=== PATIENT | male | born 1960 | race Caucasian/White ===

== ENCOUNTER 2023-03-03 08:50 | Outpatient (CLI) | payer OTHER | END 2023-03-03 08:51 | disposition home or self-care (01) | LOC: MADLAB 08:50 | PROVIDERS: ATTEND Pathology Anatomic Pathology & Clinical Pathology | DX: Z00.00 Encounter for general adult medical examination without abnormal findings (principal) | CPT/HCPCS: G0103 ==

== ENCOUNTER 2025-02-21 08:07 | Outpatient (CLI) | payer MEDICARE, OTHER ==
[2025-02-21 10:01] LABS: ALT (SGPT) 30 U/L (Less than 45); AST (SGOT) 24 U/L (11-34); Albumin 4.3 g/dL (3.1-4.5); Alkaline Phosphatase 45 U/L (40-110); Anion Gap 15 mmol/L (10-20); BUN (Urea Nitrogen) 19 mg/dL (8.4-25.7); Bilirubin, Total 0.8 mg/dL (0.3-1.2); Calc. Creatinine Clearance 0 mL/min (70-130); Calcium 8.7 mg/dL (7.8-10.44); Carbon Dioxide 22 mmol/L (23-31); Cardiac Risk 3.5 (Less than 4.5); Chloride 106 mmol/L (98-107); Cholesterol 123 mg/dl (< 200 Desired); Globulin 2.4 g/dL (2.4-3.5); Glucose 99 mg/dL (80-115); HDL Cholesterol 35 mg/dL (>60 Neg Risk); LDL Cholesterol, Calculated 70 mg/dL; Potassium 4.2 mmol/L (3.5-5.1); Sodium 139 mmol/L (136-145); Triglycerides 89 mg/dL (Less than 150)
== END 2025-02-21 08:08 | disposition home or self-care (01) ==
LOC: MADLAB 08:07
PROVIDERS: ATTEND Internal Medicine Cardiovascular Disease
DX: E78.2 Mixed hyperlipidemia (principal); I10 Essential (primary) hypertension
CPT/HCPCS: 36415; 80053; 80061